=== PATIENT | female | born 1960 | race Caucasian/White ===

== ENCOUNTER 2017-06-30 19:33 | Emergency (ER) | payer OTHER ==
[2017-06-30] MEDS: ONDANSETRON (ODT) 4 MG TAB ODT (22:39)
[2017-06-30] MEDS: MECLIZINE 12.5 MG TAB PO (22:39)
== END 2017-06-30 22:44 | disposition home or self-care (01) ==
LOC: FTE 19:33
DX: R42 Dizziness and giddiness (principal); R11.10 Vomiting, unspecified; E11.9 Type 2 diabetes mellitus without complications; Z79.82 Long term (current) use of aspirin; Z79.84 Long term (current) use of oral hypoglycemic drugs
CPT/HCPCS: 82962; 99283

== ENCOUNTER 2017-12-10 15:01 | Emergency (ER) | payer OTHER ==
[2017-12-10] MEDS: HYDROCODONE/APAP (5/325) TAB PO (16:45)
[2017-12-10] MEDS: KETOROLAC 30 MG INJ IM (16:45)
== END 2017-12-10 17:10 | disposition home or self-care (01) ==
LOC: FTE 15:01
DX: M79.605 Pain in left leg (principal); E11.9 Type 2 diabetes mellitus without complications; Z79.82 Long term (current) use of aspirin; Z79.84 Long term (current) use of oral hypoglycemic drugs
CPT/HCPCS: 73510; 73562; 93971; 96372; 99285-25

== ENCOUNTER 2018-10-30 09:34 | Emergency (ER) | payer OTHER ==
[2018-10-30 10:31] LABS: ADD MAN DIFF? NO
[2018-10-30 10:43] LABS: BASOPHILS % 0.1 % (0.0-2.0); EOSINOPHILS % 0.4 % (0.0-7.0); HEMATOCRIT 35.8 % (37.0-47.0); HEMOGLOBIN 11.6 g/dl (12.0-16.0); LYMPHOCYTES # 0.9 10^3/ul (0.8-2.9); LYMPHOCYTES % 11.8 % (15.0-51.0); MEAN CORPUSCULAR HEMOGLOBIN 26.8 pg (29.0-33.0); MEAN CORPUSCULAR HGB CONC 32.4 g/dl (32.0-37.0); MEAN CORPUSCULAR VOLUME 82.7 fl (82.0-101.0); MEAN PLATELET VOLUME 9.9 fl (7.4-10.4); MONOCYTE # 0.3 10^3/ul (0.3-0.9); MONOCYTES % 3.6 % (0.0-11.0); NEUTROPHIL # 6.7 10^3/ul (1.6-7.5); PLATELET COUNT 285 10^3/UL (140-415); RED BLOOD COUNT 4.33 10^6/ul (4.20-5.40)
[2018-10-30] MEDS: MECLIZINE 12.5 MG TAB PO (10:46)
[2018-10-30] MEDS: SOD CHLORIDE 0.9% 500 ML IV (10:46)
[2018-10-30 10:54] LABS: ANION GAP 11 (5-13); BLOOD UREA NITROGEN 18 mg/dl (7-20); CALCIUM 9.5 mg/dl (8.4-10.2); CARBON DIOXIDE 26 mmol/L (21-31); CHLORIDE 104 mmol/L (97-110); CREATININE 0.44 mg/dl (0.44-1.00); Estimated GFR > 60 mL/min (>60); GLUCOSE 205 mg/dl (70-220); POTASSIUM 4.5 mmol/L (3.5-5.1); SODIUM 141 mmol/L (135-144)
[2018-10-30 11:06] LABS: TROPONIN-I < 0.012 ng/ml (0.000-0.120)
[2018-10-30] MEDS ORDERED: ONDANSETRON 4 MG INJ (11:11)
[2018-10-30] MEDS: ONDANSETRON 4 MG INJ IV (11:13)
== END 2018-10-30 12:42 | disposition home or self-care (01) ==
LOC: E/R 09:34
DX: D64.9 Anemia, unspecified (principal); E11.9 Type 2 diabetes mellitus without complications; I10 Essential (primary) hypertension; R11.2 Nausea with vomiting, unspecified; Z79.84 Long term (current) use of oral hypoglycemic drugs; Z79.82 Long term (current) use of aspirin
CPT/HCPCS: 36415; 80048; 84484; 85025; 93005; 96374; 99284-25